=== PATIENT | female | born 1990 | race African-American/Black ===

== ENCOUNTER 2020-08-05 17:14 | Emergency (ER) | payer OTHER ==
[2020-08-05 17:24] VITALS: BP 111/76; TEMP 99.9; BMI 43.5
--- OUTSIDE RECORDS SUMMARY | 2020-08-05 17:44 | XMS ---
:1990 Author Organization [facility] Care Team Providers Name Role Phone ED STAFF PHYSICIAN Unavailable Unavailable ED STAFF PHYSICIAN Unavailable Unavailable Re-disclosure Warning The records that you are about to access may contain information from federally- assisted alcohol or drug abuse programs. If such information is present, then the following federally mandated warning applies: This information has been disclosed to you from records protected by federal confidentiality rules (42 CFR part 2). The federal rules prohibit you from making any further disclosure of this information unless further disclosure is expressly permitted by the written consent of the person to whom it pertains or as otherwise permitted by 42 CFR part 2. A general authorization for the release of medical or other information is NOT sufficient for this purpose. The Federal rules restrict any use of the information to criminally investigate or prosecute any alcohol or drug abuse patient.The records that you are about to access may contain highly sensitive health information, the redisclosure of which is protected by Article 27-F of the [facility] Public Health law. If you continue you may haveaccess to information: Regarding HIV / AIDS; Provided by facilities licensed or operated by the [facility] Office of Mental Health; or Provided by the [facility] Office for People With Developmental Disabilities. If such information is present, then the following [facility] mandated warning applies: This information has been disclosed to you from confidential records which are protected by state law. State law prohibits you from making any further disclosure of this information without the specific written consent of the person to whom it pertains, or as otherwise permitted by law. Any unauthorized further disclosure in violation of state law may result in a fine or nursing home sentence or both. A general authorization for the release of medical or other information is NOT sufficient authorization for further disclosure. Encounters Encounter Providers Location Date Indications Data Source(s ) Emergency Attender: ED STAFF H 06/17/2020 [facility] PHYSICIANAttender: 10:46:00 AM EDT edical Center STAFF ED STAFF - 06/17/2020 PHYSICIANAdmitter: 02:58:00 PM EDT ED STAFF PHYSICIAN Patient discharged. Insurance Providers Payer name Policy type Policy ID Covered Covered green party's Policy P yunior / Coverage green party ID relationship to [facility] ormation type lema [employer] [id number] SP [id number] M HMO MATILDA O [id number] [employer] Problems, Conditions, and Diagnoses Code Display Name Description Problem Type Effective Dates Data Source(s) R40.4500 Solitario coma SOLITARIO COMA Diagnosis 06/17/2020 [facility] phs scale score SCALE SCORE 10:46:00 AM EDT Medical Center 13-15, 13-15, unspecified time UNSPECIFIED TIME R07.89 Other chest pain OTHER CHEST PAIN Diagnosis 06/17/2020 [facility] 10:46:00 AM EDT Medical C enter R06.00 Dyspnea, DYSPNEA, Diagnosis 06/17/2020 [facility] unspecified UNSPECIFIED 10:46:00 AM EDT Medical Center F41.9 Anxiety disorder, ANXIETY DISORDER, Diagnosis 06/17/2020 [facility] unspecified UNSPECIFIED 10:46:00 AM EDT Medical Center R07.9 Chest pain, CHEST PAIN, Diagnosis 06/17/2020 [facility] unspecified UNSPECIFIED 10:46:00 AM EDT Medical Center Results ID Date Data Source [id number] 06/28/2020 04:41:00 PM EDT [facility] Diagnos tics Name Value Range Interpretation Code Description Data Kassandra rce(s) Supporting Document(s ) SARS-COV-2 [facility] RNA RESP Diagnostics QL SHARLENE+PROBE This lab was ordered by [facility] KEILA HAGEN and reported by [employer] [facility]. ID Date Data Source Urinalysis.[id number] 06/17/2020 11:51:00 AM EDT [facility] 0 Name Value Range Interpretation Description Data Sup porting Code Source(s) Document(s ) UNK CLEAR <content [facility] styleCode="Lorrie Cash d">Urine Medical Clarity Center </content>EVANS R <content styleCode="[place] lics"> (CLEAR )</content> Color of Urine YELLOW <content [facility] styleCode="Lorrie Gans d">Color, Medical Urine Center </content>YELL OW <content styleCode="[place] lics"> (YELLOW )</content> Glucose NEGATIVE <content [facility] [Mass/volume] styleCode="Lorrie Cash in Urine by d">Urine Medical Test strip Glucose Center </content>NEGA TIVE MG/DL<content styleCode="[place] lics"> (NEGATIVE MG/DL)</conten t> UNK NEGATIVE <content [facility] styleCode="Lorrie Gans d">Urine Medical Bilirubin Center </content>NEGA TIVE <content styleCode="[place] lics"> (NEGATIVE )</content> Specific 1.015-1.02 <content [facility] gravity of 5 styleCode="Lorrie Cash Urine by Test d">Urine Medical strip Specific Center [place] </content>1.02 0 <content styleCode="[place] lics"> (1.015-1.025 )</content> Ketones NEGATIVE <content [facility] [Mass/volume] styleCode="Lorrie Cash in Urine by d">Urine Medical Test strip Ketone Center </content>NEGA TIVE MG/DL<content styleCode="[place] lics"> (NEGATIVE MG/DL)</conten t> Hemoglobin NEGATIVE <content [facility] [Presence] in styleCode="Lorrie Cash Urine by Test d">Urine Blood Medical strip </content>NEGA Center TIVE <content styleCode="[place] lics"> (NEGATIVE )</content> Protein NEGATIVE <content [facility] [Mass/volume] styleCode="Lorrie Gans in Urine by d">Urine Medical Test strip Protein Center </content>NEGA TIVE MG/DL<content styleCode="[place] lics"> (NEGATIVE MG/DL)</conten t> Urobilinogen 0.2-1.0 <content [facility] [Units/volume] styleCode="Lorrie Gans in Urine by d">Urine Medical Test strip Urobilinogen Center </content>0.2 MG/DL<content styleCode="[place] lics"> (0.2-1.0 MG/DL)</conten t> pH of Urine by 4.5-8.0 <content Saint Test strip styleCode="Lorrie Gans d">Urine pH Medical </content>7.5 Center <content styleCode="[place] lics"> (4.5-8.0 )</content> Leukocyte NEGATIVE <content [facility] esterase styleCode="Lorrie Gans [Presence] in d">Urine Medical Urine by Test Leukocyte Center strip </content>NEGA TIVE <content styleCode="[place] lics"> (NEGATIVE )</content> Nitrite NEGATIVE <content Saint [Presence] in styleCode="Lorrie Cash Urine by Test d">Urine Medical strip Nitrite Center </content>NEGA TIVE <content styleCode="[place] lics"> (NEGATIVE )</content> ID Date Data Source [id number] 06/17/2020 11:38:00 AM EDT [facility] Name Value Range Interpretation Description Data Sup porting Code Source(s) Document(s ) Triglyceride < 150 <content Saint [Mass/volume] in styleCode="Lorrie Gans Serum or Plasma d">Triglycerid [facility] Center </content>121 MG/DL<content styleCode="[place] lics"> (< 150 MG/DL)</conten t> Cholesterol -<200 <content Saint [Mass/volume] in styleCode="Lorrie Gans Serum or Plasma d">Cholesterol Medical </content>157 Center MG/DL<content styleCode="[place] lics"> (-<200 MG/DL)</conten t> UNK > 60 Below low normal <content Saint styleCode="Lorrie Shailesh d">HDL- Medical Cholesterol Center </content>51 MG/DL L<content styleCode="[place] lics"> (> 60 MG/DL)</conten t> UNK < 100 <content [facility] styleCode="Lorrie Shailesh d">LDL-Cholest Medical epifanio Center </content>82 MG/DL<content styleCode="[place] lics"> (< 100 MG/DL)</conten t> ID Date Data Source HematologyRou.[id number] 06/17/2020 11:38:00 AM EDT [facility] 0400 Name Value Range Interpretation Description Data Sup porting Code Source(s) Document(s ) Erythrocytes 4.0-5.1 <content Saint [#/volume] in styleCode="Bold Shailesh Blood by ">Red Blood Medical Automated count Cell Count Center </content>4.42 MCUMM<content styleCode="Ital ics"> (4.0-5.1 MCUMM)</content > Leukocytes 4.4-11.0 <content Saint [#/volume] in styleCode="Bold Shailesh Blood by ">White Blood Medical Automated count Cell Count Center </content>7.02 KCUMM<content styleCode="Ital ics"> (4.4-11.0 KCUMM)</content > Hemoglobin 12.3-16. <content [facility] [Mass/volume] in 0 styleCode="Bold Shailesh Blood ">Hemoglobin Medical </content>13.3 Center G/DL<content styleCode="Ital ics"> (12.3-16.0 G/DL)</content> Erythrocyte mean 26.0-34. <content [facility] corpuscular 0 styleCode="Bold Shailesh hemoglobin ">Mean Medical [Entitic mass] Corposcular Center by Automated Hemoglobin count </content>30.1 PG<content styleCode="Ital ics"> (26.0-34.0 PG)</content> Erythrocyte mean 80.0-100 <content [facility] corpuscular .0 styleCode="Bold Shailesh volume [Entitic ">Mean Medical volume] by Corpuscular Center Automated count Volume </content>92.3 FL<content styleCode="Ital ics"> (80.0-100.0 FL)</content> Hematocrit 36.0-46. <content Saint [Volume 0 styleCode="Bold Shailesh Fraction] of ">Hematocrit Medical Blood by </content>40.8 Center Automated count %<content styleCode="Ital ics"> (36.0-46.0 %)</content> Erythrocyte mean 32.0-37. <content [facility] corpuscular 0 styleCode="Bold Shailesh hemoglobin ">Mean Corpus. Medical concentration Hgb Center [Mass/volume] by Concentration Automated count (MCHC) </content>32.6 G/DL<content styleCode="Ital ics"> (32.0-37.0 G/DL)</content> Erythrocyte 11.5-14. <content [facility] distribution 5 styleCode="Bold Shailesh width [Ratio] by ">Red Cell Medical Automated count Distribution Center Width </content>12.1 %<content styleCode="Ital ics"> (11.5-14.5 %)</content> Platelets 130-400 <content Saint [#/volume] in styleCode="Bold Shailesh Blood by ">Platelet Medical Automated count Count Center </content>216 KCUMM<content styleCode="Ital ics"> (130-400 KCUMM)</content > Platelet mean 8.0-11.0 <content Saint volume [Entitic styleCode="Bold Shailesh volume] in Blood ">Mean Platelet Medical by Automated Volume Center count </content>10.8 FL<content styleCode="Ital ics"> (8.0-11.0 FL)</content> UNK 0 <content Saint styleCode="Bold Shailesh ">Nucleated Red Medical Blood Cell Center </content>0.0 /100<content styleCode="Ital ics"> (0 /100)</content> UNK 0.0 <content Saint styleCode="Bold Shailesh ">Nucleated Red Medical Blood Cell Center Count </content>0.00 KCUMM<content styleCode="Ital ics"> (0.0 KCUMM)</content > ID Date Data Source GFR(Creatinine).[id number] 06/17/2020 11:38:00 AM EDT [facility] 0-0400 Name Value Range Interpretation Code Description Data Kassandra rce(s) Supporting Document(s ) UNK > 60 <content [facility] styleCode="Bold"> Medical Cent er EGFR </content>79 GFR<content styleCode="Italic s"> (> 60 GFR)</content> ID Date Data Source Coagulation 06/17/2020 11:38:00 AM [facility] Rout.[id number] EDT Name Value Range Interpretation Description Data Sup porting Code Source(s) Document(s ) INR in 0.80-1.2 <content [facility] Platelet poor 0 styleCode="Bold" Shailesh plasma by >INR Medical Coagulation </content>1.14 Center assay #<content styleCode="Itali cs"> (0.80-1.20 #)</content> UNK 9.0-13.0 <content Saint styleCode="Bold" Shailesh >Protime Medical </content>12.6 Center SEC<content styleCode="Itali cs"> (9.0-13.0 SEC)</content> UNK < 500 <content Saint styleCode="Bold" Shailesh >D-Dimer Medical </content>368 Center ngFEU<content styleCode="Itali cs"> (< 500 ngFEU)</content> aPTT in 25.1-36. <content [facility] Platelet poor 5 styleCode="Bold" Shailesh plasma by >Partial Medical Coagulation Thromboplastin Center assay Time </content>29.8 SEC<content styleCode="Itali cs"> (25.1-36.5 SEC)</content> ID Date Data Source CardiacMarkers.[id number] 06/17/2020 11:38:00 AM [facility] Name Value Range Interpretation Description Data Sup porting Code Source(s) Document(s ) Troponin < 0.034 <content [facility] I.cardiac styleCode="Bold Shailesh [Mass/volume ">Troponin I Medical ] in Serum </content>< Center or Plasma 0.012 NG/ML<content styleCode="Ital ics"> (< 0.034 NG/ML)</content > ID Date Data Source [id number] 06/17/2020 11:38:00 AM EDT [facility] Center Name Value Range Interpretation Description Data Sup porting Code Source(s) Document(s ) Sodium 137-145 <content [facility] [Moles/volume] styleCode="Lorrie Shailesh in Serum or d">Sodium Medical Plasma </content>137 Center MEQ/L<content styleCode="[place] lics"> (137-145 MEQ/L)</conten t> Potassium 3.5-5.3 <content [facility] [Moles/volume] styleCode="Lorrie Shailesh in Serum or d">Potassium Medical Plasma </content>3.9 Center MEQ/L<content styleCode="[place] lics"> (3.5-5.3 MEQ/L)</conten t> Chloride 98-107 Above high normal <content [facility] [Moles/volume] styleCode="Lorrie Shailesh in Serum or d">Chloride Medical Plasma </content>108 Center MEQ/L H<content styleCode="[place] lics"> (98-107 MEQ/L)</conten t> Carbon 22-30 <content [facility] dioxide, total styleCode="Lorrie Shailesh [Moles/volume] d">Carbon Medical in Serum or Dioxide Center Plasma </content>29 MEQ/L<content styleCode="[place] lics"> (22-30 MEQ/L)</conten t> UNK 7-17 <content [facility] styleCode="Lorrie Shailesh d">BUN Medical </content>10 Center MG/DL<content styleCode="[place] lics"> (7-17 MG/DL)</conten t> Glucose 74-106 <content [facility] [Mass/volume] styleCode="Lorrie Shailesh in Serum or d">Glucose Medical Plasma </content>88 Center MG/DL<content styleCode="[place] lics"> (74-106 MG/DL)</conten t> Creatinine 0.5-1.3 <content [facility] [Mass/volume] styleCode="Lorrie Shailesh in Serum or d">Creatinine Medical Plasma </content>0.9 Center MG/DL<content styleCode="[place] lics"> (0.5-1.3 MG/DL)</conten t> Calcium 8.4-10.2 <content [facility] [Mass/volume] styleCode="Lorrie Shailesh in Serum or d">Calcium Medical Plasma </content>9.2 Center MG/DL<content styleCode="[place] lics"> (8.4-10.2 MG/DL)</conten t> UNK > 60 <content [facility] styleCode="Lorrie Shailesh d">EGFR Medical </content>79 Center GFR<content styleCode="[place] lics"> (> 60 GFR)</content> Procedure Social History Code Duration Value Status Description Data Source(s ) Smoking 06/17/2020 Denies Ever completed Denies Ever Smoked [facility] Shailesh 11:26:00 AM EDT Smoked Medical C enter Smoking 06/17/2020 Denies Ever completed Denies Ever Smoked [facility] Shailesh 11:25:00 AM EDT Smoked Medical C enter Smoking 06/17/2020 Denies Ever completed Denies Ever Smoked [facility] Shailesh 10:47:00 AM EDT Smoked Medical C enter Vital Signs ID Date Data Source UNK Name Value Range Interpretation Code Description Data Source(s) Body temperature 25.494058 25.944381 [facility] Respiratory rate 17 /min 17 /min [facility] Oxygen saturation 99 % 99 % [facility] Flash osephs in Arterial blood [facility] by Pulse oximetry Heart rate 77 /min 77 /min [facility] Diastolic blood 77 mm[Hg] 77 mm[Hg] [facility] Systolic blood 123 mm[Hg] 123 mm[Hg] [facility] Center Body weight 85.304635 kg 85.306629 kg [facility] Body temperature 36.839803 36.072021 [facility] Respiratory rate 18 /min 18 /min [facility] Oxygen saturation 98 % 98 % [facility] Flash osephs in [facility] blood [facility] by Pulse oximetry Heart rate 84 /min 84 /min [facility] Body height 172.171480 172.151294 cm [facility] Diastolic blood 70 mm[Hg] 70 mm[Hg] [facility] pressure Medical Center Systolic blood 110 mm[Hg] 110 mm[Hg] [facility] Center Body mass index 28.4 kg/m2 28.4 kg/m2 [facility] (BMI) [Ratio] Medical Ariel [facility]
[2020-08-05] MEDS ORDERED: SODIUM CHLORIDE 0.9% 500 ML INFUS.BAG IV ONE (18:26)
[2020-08-05] MEDS ORDERED: ACETAMINOPHEN 1000 MG/100 ML VIAL (NON FORMULARY) IVPB ONE (18:26)
[2020-08-05] MEDS ORDERED: ACETAMINOPHEN INJECTION 100 ML IVPB ONE (18:35)
--- NOTE | 2020-08-05 19:38 | PDOC ---
History of Present Illness - General History Source: Patient Exam Limitations: No Limitations - History of Present Illness Initial Comments: 08/05/20 19:29 Patient is a 29-year-old female with a history of migraines and asthma who presents to the ED stating that she has had a migraine for the last 4 days. She is not currently on any medications for migraines. She denies any fevers or chills. The patient does state that she is having increased anxiety and depression over the last 4 to 5 months. She states that she is having difficulty doing daily activities. She has an incredible amount of increased stress as she works for [employer], has a child with special needs, and is going through a divorce. The patient was seen at [facility] and was prescribed hydroxyzine from psychiatry but she states that she is having trouble taking it as it makes her too lethargic to work the next day. The patient denies any suicidal or homicidal ideations. She denies any visual or audio hallucinations. The patient states that she has an appointment on August 17 with a psychiatrist but wanted to be evaluated today. She states she is feeling very overwhelmed. She does admit to not showering in the last 4 days and has called out of work as well. The patient states she has a history of migraines for which she was on a nasal spray as a teenager. She has not had a migraine in a while. She does admit to having difficulty sleeping and she believes this is was causing her headache. The headache feels similar to her previous migraines in the past. <Shanell Camara - Last Filed: 08/05/20 20:27> <Camelia Mcintyre - Last Filed: 08/05/20 20:42> - General Chief Complaint: Headache Stated Complaint: ANXIETY Time Seen by Provider: 08/05/20 18:06 Past History - Medical History COPD: No Psychiatric Problems: Yes (anxiety) - Reproductive History Is Patient Now?: No - Immunization History Immunization Up to Date: Yes - Psycho-Social/Smoking History Smoking History: Never smoked Have you smoked in the past 12 months: No - Substance Abuse Hx (Audit-C & DAST Scrn) How often the patient has a drink containing alcohol: Monthly or less Number of drinks the patient has on a typical day: 1 or 2 How often the patient has six or more drinks on one occasion: Never Score: In Men: 4 or > Positive; In Women: 3 or > Positive: 1 Screen Result (Pos requires Nsg. Audit-10AR): Negative In the last yr the pt used illegal drug/Rx for NonMed reason: No Score: Yes response is considered Positive: 0 Screen Result (Positive result requires Nsg. DAST-10): Negative <HoaShanell mendes Rashaad - Last Filed: 08/05/20 20:27> <MiguelinaCamelia Yoon - Last Filed: 08/05/20 20:42> - Medical History Allergies/Adverse Reactions: Allergies Allergy/AdvReac Type Severity Reaction Status Date / Time No Known Allergies Allergy Verified 08/05/20 17:18 Review of Systems - Review of Systems Comments:: 08/05/20 19:38 - Review of Systems Able to Perform ROS?: Yes Constitutional: No: Fever, Chills, Loss of Appetite, Night Sweats, Weakness HEENTM: No: Eye Pain, Vision changes, Ear Pain, Throat Pain, Throat Swelling, Mouth Pain, Difficulty Swallowing Respiratory: No: Cough, Shortness of Breath, Wheezing, Sputum Production Cardiac (ROS): No: Chest Pain, Chest Tightness, Palpitations, Irregular Heart Beat, Edema ABD/GI: No: Nausea, Vomiting, Abdominal Pain, Diarrhea : No Dysuria, No Hematuria, No Frequency, No Urgency Musculoskeletal: No: Muscle Pain, Back Pain, Joint Pain, Muscle Weakness, Neck Pain Integumentary: No: Lesions, Rash Neurological: No: Numbness, Tingling, Weakness, Speech Difficulties; positive: Migraine Psych: Positive: Anxiety and depression, negative suicidal ideation, homicidal ideation, hallucinations auditory or visual <Shanell Camara D - Last Filed: 08/05/20 20:27> *Physical Exam - Vital Signs Last Vital Signs Temp Pulse Resp BP Pulse Ox 99.9 F H 86 18 111/76 100 08/05/20 17:19 08/05/20 17:19 08/05/20 17:19 08/05/20 17:19 08/05/20 17:19 - Physical Exam 08/05/20 19:39 - Physical Exam General Appearance: Nourished, Appropriately Dressed, No Distress HEENT: EOMI, Normal Voice, Hearing Grossly Normal Neck: Supple, No Lymphadenopathy (R), No Lymphadenopathy (L), No Rigidity, No Decreased range of motion Respiratory/Chest: Lungs Clear, Normal Breath Sounds. No Respiratory Distress, No Accessory Muscle Use Cardiovascular: Regular Rhythm, Regular Rate, S1, S2 Gastrointestinal/Abdominal: Normal Bowel Sounds, Soft. Non-tender, No Guarding, No Rebound, No Rigidity Musculoskeletal: Normal Inspection. No Decreased Range of Motion Extremity: Normal Capillary Refill, Normal Inspection Integumentary: Normal Color, Dry. No Rash Neurologic: plastics heat welder II-XII NML intact, Fully Oriented, Alert, Normal Mood/Affect, Normal Response, normal gait without ataxia, strength 5/5 bilateral upper and lower extremities, sensation intact to light touch to face and bilateral upper and lower extremities Psych: No garbled speech, speaking in full and complete sentences, no word salad, linear thought process, patient is coherent <Shanell Camara D - Last Filed: 08/05/20 20:27> - Vital Signs Last Vital Signs Temp Pulse Resp BP Pulse Ox 99.9 F H 86 18 111/76 100 08/05/20 17:19 08/05/20 17:19 08/05/20 17:19 08/05/20 17:19 08/05/20 17:19 <Camelia Mcintyre - Last Filed: 08/05/20 20:42> ED Treatment Course - Medications Given in the ED: ED Medications Discontinued Medications Generic Name Dose Route Start Last Admin Trade Name Freq PRN Reason Stop Dose Admin Acetaminophen 1,000 mg 08/05/20 18:26 08/05/20 18:52 Ofirmev Injection - IVPB 08/05/20 18:27 1,000 mg ONCE ONE Administration Diphenhydramine HCl 25 mg 08/05/20 18:26 08/05/20 19:11 Benadryl Injection - IVPUSH 08/05/20 18:27 25 mg ONCE ONE Administration Sodium Chloride 1,000 ml 08/05/20 18:26 08/05/20 18:52 Normal Saline - IV 08/05/20 18:27 1,000 ml ONCE ONE Administration <Shanell Camara D - Last Filed: 08/05/20 20:27> - Medications Given in the ED: ED Medications Discontinued Medications Generic Name Dose Route Start Last Admin Trade Name Freq PRN Reason Stop Dose Admin Acetaminophen 1,000 mg 08/05/20 18:26 08/05/20 18:52 Ofirmev Injection - IVPB 08/05/20 18:27 1,000 mg ONCE ONE Administration Diphenhydramine HCl 25 mg 08/05/20 18:26 08/05/20 19:11 Benadryl Injection - IVPUSH 08/05/20 18:27 25 mg ONCE ONE Administration Sodium Chloride 1,000 ml 08/05/20 18:26 08/05/20 18:52 Normal Saline - IV 08/05/20 18:27 1,000 ml ONCE ONE Administration <MiguelinaCamelia Yoon - Last Filed: 08/05/20 20:42> Medical Decision Making - Medical Decision Making 08/05/20 19:41 Assessment: Patient is a 29-year-old female with a migraine headache. She is also complaining of increased anxiety and depression without homicidal or suicidal ideation. She does not have any hallucinations, audio or visual. Plan: -Saline lock and 1 L of NS ordered -Tylenol 1 g ordered IV, Benadryl 25 mg ordered IV -Patient has follow-up with psychiatry on August 17. Will discuss decreasing her hydroxyzine to help her sleep. Further resources given to the patient including referrals to other psychiatrist for a sooner appointment. 08/05/20 20:27 The patient states that she is beginning to feel a little bit better. We will give her referral for other psychiatrists to see if she can follow-up sooner than August 17. The patient has been advised to get plenty rest and drink plenty of fluids. She understands and agrees with this treatment plan and she is stable for discharge <Shanell Camara - Last Filed: 08/05/20 20:27> - Medical Decision Making The patient was seen and evaluated in conjunction with midlevel provider under my direct supervision, ancillary studies were reviewed. I agree with the plan as outlined withKEMAR Camara. HPI, workup/dispo as outlined. VS reviewed, wnl. no fevers, no systemic findings. Vital Signs Temp Pulse Resp BP Pulse Ox 99.9 F H 86 18 111/76 100 08/05/20 17:19 08/05/20 17:19 08/05/20 17:19 08/05/20 17:19 08/05/20 17:19 she has multiple stressors in life, c/o headache here. neuro intact, no focal deficits. has established h/o migraine. Patient given analgesia. She has no hallucinations, homicidal or suicidal ideation. No threats to self or others at this time. No psychiatric emergency at this time. Will provide appropriate psychiatric follow-up with referrals and return precautions. Anticipate discharge, pcp followup, return precautions 08/05/20 20:40 <Camelia Mcintyre - Last Filed: 08/05/20 20:42> Discharge - Discharge Information Problems reviewed: Yes <Shanell Camara - Last Filed: 08/05/20 20:27> - Discharge Information Problems reviewed: Yes - Admission No <Camelia Mcintyre - Last Filed: 08/05/20 20:42> - Discharge Information Clinical Impression/Diagnosis: Migraine headache Qualifiers: Migraine type: without aura Status migrainosus presence: without status migrainosus Intractability: not intractable Qualified Code(s): G43.009 - Migraine without aura, not intractable, without status migrainosus Condition: Stable Disposition: HOME - Follow up/Referral Referrals: Toan Larose NP [Nurse Practitioner] - Aguilar Shell MD [Staff Physician] - Bolivar Brito MD [Staff Physician] - Di Duarte MD [Staff Physician] - - Patient Discharge Instructions Patient Printed Discharge Instructions: Migraine -- Adult, DI for Depression -- Adult, DI for Anxiety -- Adult Additional Instructions: Get plenty of rest and drink plenty of fluids. You can try taking your hydroxyzine at night only to help with sleeping. This may make you drowsy in the morning if you do not sleep 6 to 8 hours. Be sure to follow-up with your psychiatrist on August 17 for further evaluation. You have been given a referral to multiple psychiatrists to see if you can see somebody sooner than August 17. Return to the emergency department for any thoughts of wanting to hurt yourself or others (suicidal or homicidal thoughts), any hallucinations auditory or visual, increased depression with a loss of wanting to continue with life or any other worsening symptoms. - Post Discharge Activity Work/Back to School Note: Back to Work
[2020-08-05 21:07] VITALS: PULSE 89
== END 2020-08-05 21:38 | disposition home or self-care (01) ==
LOC: JER 17:14
PROC: 3E0333Z Introduction of Anti-inflammatory into Peripheral Vein, Percutaneous Approach (ICD-10-PCS; principal; 2020-08-05)
PROC: 3E033GC Introduction of Other Therapeutic Substance into Peripheral Vein, Percutaneous Approach (ICD-10-PCS; 2020-08-05)
DX: G43.009 Migraine without aura, not intractable, without status migrainosus (principal)
CPT/HCPCS: 99284-25; J0131